=== PATIENT | female | born 1965 | race Caucasian/White ===

== ENCOUNTER → 2017-10-03 | Outpatient (CLI) | payer OTHER ==
[~2017-10-03] MED LIST: ALBU90OI61 INH; Amox Tr-K Clv1 EAC2 PO; BENTYL10 MG; CEPH500 PO; CETI5 PO; CYCL10 PO; Cinnamon500 MG PO; Coumadin5 MG; Cymbalta60 MG PO; DOCU100 PO; DOXE25 PO; DULO60; DULO60 PO; Doc-Q-Lace100 MG PO; ENOX100I SC; FIBER SELECT G1 EACH PO; FLUT.05NI; FLUT110OIA; FLUT110OIA INH; FURO20 PO; FURO40 PO; GABA300 PO; GLUC500 PO; GLUCOSAMINE &1 EACH PO; METCAR500 PO; Micro-K10 MEQ PO; NATURAL SUPPLEMENTS; NITR.4SL; NITR.6SL SL; Nitrostat0.4 MG SL; OMEP20ER PO; OXYC10TA19; PANT40; PANT40 PO; PRAM.125 PO; PROC10 PO; PROC5 PO; Percocet 5-3251 EACH PO; ROPI1; ROPI1 PO; ROSU10TA PO; Robaxin500 MG PO; SUCR1 PO; TOPI100 PO; TOPI25 PO; VALA500; VALA500 PO; Ventolin5 MG/1 ML; WARF10 PO; WARF5; WARF5 PO; WARF7.5 PO; Zofran Odt4 MG SL
== END | disposition home or self-care (01) ==
LOC: LAB EV 12:37
DX: J02.9 Acute pharyngitis, unspecified (principal)
CPT/HCPCS: 87070

== ENCOUNTER → 2017-11-06 | Outpatient (CLI) | payer OTHER ==
[2017-11-06 18:39] LABS: Bilirubin, Urine Neg (Neg); Blood, Urine 2+ (Neg); Glucose Qualitative, Urine Neg (Neg); Ketones, Urine Neg (Neg); Leukocyte Esterase, Urine 1+ (Neg); Nitrite, Urine Neg (Neg); Protein, Urine Neg (Neg); Urobilinogen, Urine NORM (Normal)
[2017-11-06 19:04] LABS: Appearance, Urine Clear (Clear); Color, Urine Yellow (P-Yellow)
[2017-11-06 19:06] LABS: Bacteria Few /hpf; Squamous Epithelial Cells Few /hpf (Few)
== END ==
LOC: LAB SHORT 18:14
PROVIDERS: Registered Nurse
DX: R82.90 Unspecified abnormal findings in urine (principal); R35.0 Frequency of micturition
CPT/HCPCS: 81001; 87086

== ENCOUNTER → 2017-11-14 | Outpatient (CLI) | payer OTHER ==
[~2017-11-14] MED LIST changes: -Micro-K10 MEQ PO; -PRAM.125 PO; -ROSU10TA PO
[2017-11-14 16:32] LABS: BASOPHILS ABSOLUTE AUTO 0.04 K/mm3 (0.00-0.23); BASOPHILS PERCENT AUTO 1 % (0-2); EOSINOPHILS ABSOLUTE AUTO 0.08 K/mm3 (0.00-0.68); EOSINOPHILS PERCENT AUTO 1 % (0-6); Hematocrit 43.9 % (33.0-51.0); Hemoglobin 14.2 g/dL (11.5-16.0); IMMATURE GRAN ABSOLUTE AUTO 0.01 K/mm3 (0.00-0.10); IMMATURE GRAN PERCENT AUTO 0 % (0-1); LYMPHOCYTES ABSOLUTE AUTO 1.69 K/mm3 (0.84-5.20); LYMPHOCYTES PERCENT AUTO 27 % (21-46); MONOCYTES ABSOLUTE AUTO 0.36 K/mm3 (0.16-1.47); MONOCYTES PERCENT AUTO 6 % (4-13); Mean Corpuscular HGB 29.6 pg (26.0-34.0); Mean Corpuscular HGB Conc 32.3 g/dL (31.5-36.5); Mean Corpuscular Volume 92 fL (80-100); Mean Platelet Volume 10.2 fL (9.1-12.4); NEUTROPHILS ABSOLUTE AUTO 4.02 K/mm3 (1.96-9.15); NEUTROPHILS PERCENT AUTO 65 % (41-73); Platelet Count 278 K/mm3 (150-400); RDW Coefficient Variation 14.5 % (11.7-14.2); RDW Standard Deviation 48.4 fL (35.1-46.3)
== END ==
LOC: LAB SHORT 16:28 → LAB EV 16:28
PROVIDERS: Physician Assistant
DX: R10.84 Generalized abdominal pain (principal)
CPT/HCPCS: 85025

== ENCOUNTER → 2017-12-04 | Outpatient (CLI) | payer OTHER ==
[~2017-12-04] MED LIST changes: +Micro-K10 MEQ PO; +PRAM.125 PO; +ROSU10TA PO
[2017-12-04 14:54] LABS: Candida species (DNA Probe) Negative (NEGATIVE); G. vaginalis (DNA Probe) Negative (NEGATIVE); T. vaginalis (DNA Probe) Negative (NEGATIVE)
[2017-12-04 16:21] LABS: Source, Urine Clean Catch
[2017-12-04 18:32] LABS: Appearance, Urine Clear (Clear); Bilirubin, Urine Neg (Neg); Blood, Urine Neg (Neg); Color, Urine Yellow (P-Yellow); Glucose Qualitative, Urine Neg (Neg); Ketones, Urine Neg (Neg); Leukocyte Esterase, Urine Neg (Neg); Nitrite, Urine Neg (Neg); Protein, Urine Neg (Neg); Specific Gravity, Urine 1.015 (1.003-1.022); Urobilinogen, Urine NORM (Normal)
== END ==
LOC: LAB 11:01
PROVIDERS: Obstetrics & Gynecology
DX: N76.0 Acute vaginitis (principal); R39.9 Unspecified symptoms and signs involving the genitourinary system
CPT/HCPCS: 81003; 87480; 87510; 87660

== ENCOUNTER → 2018-01-02 | Outpatient (CLI) | payer OTHER ==
[~2018-01-02] MED LIST changes: -Micro-K10 MEQ PO; -PRAM.125 PO; -ROSU10TA PO
[2018-01-02 11:45] LABS: Source, Urine Clean Catch
[2018-01-02 13:07] LABS: Appearance, Urine Hazy (Clear); Bilirubin, Urine Neg (Neg); Blood, Urine 2+ (Neg); Color, Urine Yellow (P-Yellow); Glucose Qualitative, Urine Neg (Neg); Ketones, Urine Neg (Neg); Leukocyte Esterase, Urine 1+ (Neg); Nitrite, Urine Neg (Neg); Protein, Urine Neg (Neg); Specific Gravity, Urine 1.015 (1.003-1.022); Urobilinogen, Urine NORM (Normal)
[2018-01-02 13:29] LABS: White Blood Cells, Urine TNTC /hpf (0-5)
[2018-01-02 13:30] LABS: Bacteria Many /hpf; Squamous Epithelial Cells Few /hpf (Few)
== END | disposition home or self-care (01) ==
LOC: LAB SHORT 11:44 → LAB 11:44
PROVIDERS: Obstetrics & Gynecology
DX: R35.0 Frequency of micturition (principal)
CPT/HCPCS: 81001; 87077; 87086; 87186

== ENCOUNTER 2019-06-17 10:16 | Day surgery (SDC) | payer OTHER ==
[~2019-06-17] VITALS: Wt 149.4 kg
[~2019-06-17 10:16] MED LIST changes: +Micro-K10 MEQ PO; +PRAM.125 PO; +ROSU10TA PO
[2019-06-17] MEDS ORDERED: CENTRUM CHEWAB1 EAC1 PO (10:42)
[2019-06-17] MEDS ORDERED: CYAN500 PO (10:42)
[2019-06-17] MEDS ORDERED: CALCITRATE200 MG PO (10:43)
== END 2019-06-17 17:15 | disposition home or self-care (01) ==
LOC: ATC 10:16
DX: D68.51 Activated protein C resistance (principal); Z86.718 Personal history of other venous thrombosis and embolism; Z79.01 Long term (current) use of anticoagulants; Z79.899 Other long term (current) drug therapy; Z88.5 Allergy status to narcotic agent; Z91.030 Bee allergy status
CPT/HCPCS: 96372; J1650

== ENCOUNTER 2019-06-18 00:13 | Day surgery (SDC) | payer OTHER ==
[~2019-06-18 00:13] MED LIST changes: +CALCITRATE200 MG PO; +CENTRUM CHEWAB1 EAC1 PO; +CYAN500 PO
== END 2019-06-18 08:03 | disposition home or self-care (01) ==
LOC: ATC 00:13
DX: D68.51 Activated protein C resistance (principal); E78.5 Hyperlipidemia, unspecified; F32.9 Major depressive disorder, single episode, unspecified; J45.909 Unspecified asthma, uncomplicated; Z79.899 Other long term (current) drug therapy; Z79.01 Long term (current) use of anticoagulants; Z91.038 Other insect allergy status; Z88.6 Allergy status to analgesic agent
CPT/HCPCS: 96372; J1650

== ENCOUNTER 2019-06-21 16:03 | Day surgery (SDC) | payer OTHER | END 2019-08-01 23:34 | disposition home or self-care (01) | LOC: ATC 16:03 | DX: D68.51 Activated protein C resistance (principal); J45.909 Unspecified asthma, uncomplicated; M17.12 Unilateral primary osteoarthritis, left knee; M16.11 Unilateral primary osteoarthritis, right hip; E78.5 Hyperlipidemia, unspecified; F32.9 Major depressive disorder, single episode, unspecified; K21.9 Gastro-esophageal reflux disease without esophagitis; E55.9 Vitamin D deficiency, unspecified; M41.9 Scoliosis, unspecified; E66.9 Obesity, unspecified; G47.33 Obstructive sleep apnea (adult) (pediatric); Z79.899 Other long term (current) drug therapy; Z88.5 Allergy status to narcotic agent; Z91.030 Bee allergy status | CPT/HCPCS: 96372; J1650 ==

== ENCOUNTER 2019-06-22 07:39 | Day surgery (SDC) | payer OTHER | END 2019-06-22 16:41 | disposition home or self-care (01) | LOC: ATC 07:39 | DX: D68.51 Activated protein C resistance (principal); J45.909 Unspecified asthma, uncomplicated; E78.5 Hyperlipidemia, unspecified; F32.9 Major depressive disorder, single episode, unspecified; G47.33 Obstructive sleep apnea (adult) (pediatric); E66.9 Obesity, unspecified; Z79.899 Other long term (current) drug therapy; Z79.01 Long term (current) use of anticoagulants; Z79.51 Long term (current) use of inhaled steroids; Z88.6 Allergy status to analgesic agent; Z91.030 Bee allergy status | CPT/HCPCS: 36416; 85610; 96372; J1650 ==

== ENCOUNTER 2019-06-23 00:18 | Day surgery (SDC) | payer OTHER ==
--- NOTE | 2019-06-23 08:29 | NUR ---
INR 2.3, NO LOVENOX GIVEN PER ORDERS.
== END 2019-06-23 08:29 | disposition home or self-care (01) ==
LOC: ATC 00:18
DX: D68.51 Activated protein C resistance (principal); E78.5 Hyperlipidemia, unspecified; J45.909 Unspecified asthma, uncomplicated; F32.9 Major depressive disorder, single episode, unspecified; G47.33 Obstructive sleep apnea (adult) (pediatric); E66.9 Obesity, unspecified; Z79.01 Long term (current) use of anticoagulants; Z79.51 Long term (current) use of inhaled steroids; Z79.899 Other long term (current) drug therapy; Z91.030 Bee allergy status
CPT/HCPCS: 36416; 85610; 99211; J1650

== ENCOUNTER → 2019-08-06 | Outpatient (CLI) | payer OTHER ==
[2019-08-06 17:03] LABS: Source, Urine Clean Catch
[2019-08-06 18:16] LABS: Bilirubin, Urine Neg (Neg); Blood, Urine 4+ (Neg); Glucose Qualitative, Urine Neg (Neg); Ketones, Urine 1+ (Neg); Leukocyte Esterase, Urine 1+ (Neg); Nitrite, Urine Neg (Neg); Protein, Urine 1+ (Neg); Specific Gravity, Urine 1.015 (1.003-1.022); Urobilinogen, Urine NORM (Normal); pH, Urine 6.5 (5.0-8.0)
[2019-08-06 18:32] LABS: Appearance, Urine Clear (Clear); Color, Urine Yellow (P-Yellow)
[2019-08-06 18:33] LABS: Red Blood Cells, Urine 25-50 /hpf (0-2); White Blood Cells, Urine 0-2 /hpf (0-5)
[2019-08-06 18:34] LABS: Bacteria Mod /hpf; Squamous Epithelial Cells Few /hpf (Few)
== END ==
LOC: LAB SHORT 17:01 → LAB 17:01
PROVIDERS: Obstetrics & Gynecology
DX: R30.9 Painful micturition, unspecified (principal)
CPT/HCPCS: 81001; 87086

== ENCOUNTER 2019-08-17 09:11 | Day surgery (SDC) | payer OTHER ==
--- NOTE | 2019-08-17 15:39 | NUR ---
INR RESULTS FAXED TO [facility]
[2019-08-24] MEDS ORDERED: OMEPRAZOLE20 MG PO (07:34)
[2019-10-17] MEDS ORDERED: DULO60 PO (10:22)
[2019-10-17] MEDS ORDERED: ALBU2.5V5 INH (10:23)
[2019-10-17] MEDS ORDERED: ALLER-FEX180 MG PO (10:24)
== END 2019-08-17 16:45 | disposition home or self-care (01) ==
LOC: ATC 09:11
DX: D68.51 Activated protein C resistance (principal); J44.9 Chronic obstructive pulmonary disease, unspecified; E78.5 Hyperlipidemia, unspecified; F41.9 Anxiety disorder, unspecified; E66.9 Obesity, unspecified; F32.9 Major depressive disorder, single episode, unspecified; G47.33 Obstructive sleep apnea (adult) (pediatric); K21.9 Gastro-esophageal reflux disease without esophagitis; H90.8 Mixed conductive and sensorineural hearing loss, unspecified; H53.10 Unspecified subjective visual disturbances; Z79.01 Long term (current) use of anticoagulants; Z79.899 Other long term (current) drug therapy; Z88.5 Allergy status to narcotic agent; Z91.030 Bee allergy status
CPT/HCPCS: 36416; 85610; 96372; J1650

== ENCOUNTER 2019-08-18 06:53 | Day surgery (SDC) | payer OTHER ==
[2019-08-24] MEDS ORDERED: OMEPRAZOLE20 MG PO (07:34)
[2019-10-17] MEDS ORDERED: DULO60 PO (10:22)
[2019-10-17] MEDS ORDERED: ALBU2.5V5 INH (10:23)
[2019-10-17] MEDS ORDERED: ALLER-FEX180 MG PO (10:24)
== END 2019-08-18 16:04 | disposition home or self-care (01) ==
LOC: ATC 06:53
DX: D68.2 Hereditary deficiency of other clotting factors (principal); I10 Essential (primary) hypertension; J45.909 Unspecified asthma, uncomplicated; E78.5 Hyperlipidemia, unspecified; E66.9 Obesity, unspecified; G62.9 Polyneuropathy, unspecified; G25.81 Restless legs syndrome; F32.9 Major depressive disorder, single episode, unspecified; G47.33 Obstructive sleep apnea (adult) (pediatric); K21.9 Gastro-esophageal reflux disease without esophagitis; M41.84 Other forms of scoliosis, thoracic region; F70 Mild intellectual disabilities; E55.9 Vitamin D deficiency, unspecified; K58.1 Irritable bowel syndrome with constipation; Z79.01 Long term (current) use of anticoagulants; Z79.51 Long term (current) use of inhaled steroids; Z79.899 Other long term (current) drug therapy; Z88.5 Allergy status to narcotic agent; Z91.030 Bee allergy status; Z86.711 Personal history of pulmonary embolism; Z86.718 Personal history of other venous thrombosis and embolism; Z90.710 Acquired absence of both cervix and uterus
CPT/HCPCS: 96372; J1650

== ENCOUNTER 2019-08-19 00:07 | Day surgery (SDC) | payer OTHER ==
[2019-08-24] MEDS ORDERED: OMEPRAZOLE20 MG PO (07:34)
[2019-10-17] MEDS ORDERED: DULO60 PO (10:22)
[2019-10-17] MEDS ORDERED: ALBU2.5V5 INH (10:23)
[2019-10-17] MEDS ORDERED: ALLER-FEX180 MG PO (10:24)
== END 2019-08-19 07:55 | disposition home or self-care (01) ==
LOC: ATC 00:07
DX: D68.2 Hereditary deficiency of other clotting factors (principal); I27.20 Pulmonary hypertension, unspecified; J45.909 Unspecified asthma, uncomplicated; E78.5 Hyperlipidemia, unspecified; E66.9 Obesity, unspecified; G62.9 Polyneuropathy, unspecified; G25.81 Restless legs syndrome; K58.1 Irritable bowel syndrome with constipation; F32.9 Major depressive disorder, single episode, unspecified; K21.9 Gastro-esophageal reflux disease without esophagitis; G47.33 Obstructive sleep apnea (adult) (pediatric); F70 Mild intellectual disabilities; G89.29 Other chronic pain; M41.84 Other forms of scoliosis, thoracic region; Z90.710 Acquired absence of both cervix and uterus; Z79.01 Long term (current) use of anticoagulants; Z79.899 Other long term (current) drug therapy; Z79.51 Long term (current) use of inhaled steroids; Z88.5 Allergy status to narcotic agent; Z91.030 Bee allergy status
CPT/HCPCS: 36416; 85610; 96372; J1650

== ENCOUNTER 2019-08-20 13:23 | Day surgery (SDC) | payer OTHER ==
[~2019-08-20] VITALS: Ht 175.3 cm; Wt 136.0 kg
--- NOTE | 2019-08-20 16:08 | NUR ---
08/20/19 1608 Juju Cadena PT DELAYED D/T DR PRIETO'S CONCRETE PUDDLER EMERGENT CASES NEXT DOOR. DR. ARCHIBALD CAN DO PROCEDURE. DR PRIETO & PT BOTH OK WITH THIS. DR ARCHIBALD NEXT DOOR TO DO 1600 CASE, THEN BACK TO COMPLETE THIS UPPER. PT AND FAMILY MEMBER NOTIFIED. BOTH STATE AN UNDERSTANDING AND ARE HANDLING THE DELAY GOOD. CALL LIGHT WITHIN REACH. VSS. WILL CONTINUE TO MONITOR.
[2019-08-21] MEDS ORDERED: WARF10 PO ×2 (08:09→08:10)
[2019-08-24] MEDS ORDERED: OMEPRAZOLE20 MG PO (07:34)
[2019-10-17] MEDS ORDERED: DULO60 PO (10:22)
[2019-10-17] MEDS ORDERED: ALBU2.5V5 INH (10:23)
[2019-10-17] MEDS ORDERED: ALLER-FEX180 MG PO (10:24)
== END 2019-08-20 17:31 | disposition home or self-care (01) ==
LOC: ORSCSDS 13:23
PROVIDERS: Internal Medicine Gastroenterology
PROC: 0DB58ZX Excision of Esophagus, Via Natural or Artificial Opening Endoscopic, Diagnostic (ICD-10-PCS; principal; 2019-08-20 15:15)
DX: R13.10 Dysphagia, unspecified (principal); K21.9 Gastro-esophageal reflux disease without esophagitis; K22.2 Esophageal obstruction; K44.9 Diaphragmatic hernia without obstruction or gangrene; K22.10 Ulcer of esophagus without bleeding; G47.33 Obstructive sleep apnea (adult) (pediatric); J45.909 Unspecified asthma, uncomplicated; E78.5 Hyperlipidemia, unspecified; E66.01 Morbid (severe) obesity due to excess calories; Z68.41 Body mass index [BMI] 40.0-44.9, adult; Z79.899 Other long term (current) drug therapy
CPT/HCPCS: 88305; J2704; J7120

== ENCOUNTER 2019-08-21 00:17 | Day surgery (SDC) | payer OTHER ==
[2019-08-21] MEDS ORDERED: WARF10 PO ×2 (08:09→08:10)
[2019-08-24] MEDS ORDERED: OMEPRAZOLE20 MG PO (07:34)
[2019-10-17] MEDS ORDERED: DULO60 PO (10:22)
[2019-10-17] MEDS ORDERED: ALBU2.5V5 INH (10:23)
[2019-10-17] MEDS ORDERED: ALLER-FEX180 MG PO (10:24)
== END 2019-08-21 08:10 | disposition home or self-care (01) ==
LOC: ATC 00:17
DX: D68.2 Hereditary deficiency of other clotting factors (principal); J45.909 Unspecified asthma, uncomplicated; E78.5 Hyperlipidemia, unspecified; K21.9 Gastro-esophageal reflux disease without esophagitis; E66.9 Obesity, unspecified; M17.12 Unilateral primary osteoarthritis, left knee; M16.11 Unilateral primary osteoarthritis, right hip; G62.9 Polyneuropathy, unspecified; G25.81 Restless legs syndrome; F32.9 Major depressive disorder, single episode, unspecified; G47.33 Obstructive sleep apnea (adult) (pediatric); M41.9 Scoliosis, unspecified; F70 Mild intellectual disabilities; I27.20 Pulmonary hypertension, unspecified; G89.29 Other chronic pain; Z79.01 Long term (current) use of anticoagulants; Z79.51 Long term (current) use of inhaled steroids; Z79.899 Other long term (current) drug therapy; Z90.710 Acquired absence of both cervix and uterus; Z88.5 Allergy status to narcotic agent; Z91.030 Bee allergy status
CPT/HCPCS: 96372; J1650

== ENCOUNTER 2019-08-22 00:35 | Day surgery (SDC) | payer OTHER ==
--- NOTE | 2019-08-22 18:25 | NUR ---
PT REPORTS THAT SHE WILL NOT BE IN ON 08/24 AND 08/25 "I'LL BE HOUSE SITTING AND I WONT HAVE A RIDE" PT VERBALIZES THE IMPORTANCE OF KEEPING HER APPOINTMENT AND REPORTS "NO" WHEN ASKED IF DR IS AWARE SHE WILL BE MISSING THOSE 2 DAYS. "ANALI BEEN THROUGH THAT TAKING A CAB AND HAVING THEM DROP ME OFF, AND THEN HAVING TO WAIT A LONG TIME TO HAVE THEM PICK ME UP AND TAKE ME HOME. IM NOT GOING THROUGH THAT AGAIN!"
[2019-08-24] MEDS ORDERED: OMEPRAZOLE20 MG PO (07:34)
[2019-10-17] MEDS ORDERED: DULO60 PO (10:22)
[2019-10-17] MEDS ORDERED: ALBU2.5V5 INH (10:23)
[2019-10-17] MEDS ORDERED: ALLER-FEX180 MG PO (10:24)
== END 2019-08-22 16:40 | disposition home or self-care (01) ==
LOC: ATC 00:35
DX: D68.2 Hereditary deficiency of other clotting factors (principal); J45.909 Unspecified asthma, uncomplicated; E78.5 Hyperlipidemia, unspecified; K21.9 Gastro-esophageal reflux disease without esophagitis; E66.9 Obesity, unspecified; G62.9 Polyneuropathy, unspecified; G25.81 Restless legs syndrome; I27.20 Pulmonary hypertension, unspecified; G47.33 Obstructive sleep apnea (adult) (pediatric); M41.84 Other forms of scoliosis, thoracic region; F70 Mild intellectual disabilities; F32.9 Major depressive disorder, single episode, unspecified; M19.90 Unspecified osteoarthritis, unspecified site; Z79.01 Long term (current) use of anticoagulants; Z79.51 Long term (current) use of inhaled steroids; Z79.899 Other long term (current) drug therapy; Z88.5 Allergy status to narcotic agent; Z91.030 Bee allergy status; Z86.711 Personal history of pulmonary embolism; Z86.718 Personal history of other venous thrombosis and embolism; Z91.038 Other insect allergy status
CPT/HCPCS: 36416; 85610; 96372; J1650

== ENCOUNTER 2019-08-23 00:20 | Day surgery (SDC) | payer OTHER ==
[2019-08-24] MEDS ORDERED: OMEPRAZOLE20 MG PO (07:34)
[2019-10-17] MEDS ORDERED: DULO60 PO (10:22)
[2019-10-17] MEDS ORDERED: ALBU2.5V5 INH (10:23)
[2019-10-17] MEDS ORDERED: ALLER-FEX180 MG PO (10:24)
== END 2019-08-23 16:33 | disposition home or self-care (01) ==
LOC: ATC 00:20
DX: D68.2 Hereditary deficiency of other clotting factors (principal); E78.5 Hyperlipidemia, unspecified; F32.9 Major depressive disorder, single episode, unspecified; J45.909 Unspecified asthma, uncomplicated; E66.9 Obesity, unspecified; G47.33 Obstructive sleep apnea (adult) (pediatric); H90.8 Mixed conductive and sensorineural hearing loss, unspecified; H53.10 Unspecified subjective visual disturbances; K21.9 Gastro-esophageal reflux disease without esophagitis; Z79.01 Long term (current) use of anticoagulants; Z79.899 Other long term (current) drug therapy; Z88.5 Allergy status to narcotic agent; Z91.030 Bee allergy status; Z79.02 Long term (current) use of antithrombotics/antiplatelets
CPT/HCPCS: 36416; 85610; 96372; J1650

== ENCOUNTER 2019-08-25 00:36 | Day surgery (SDC) | payer OTHER ==
[~2019-08-25 00:36] MED LIST changes: +OMEPRAZOLE20 MG PO
== END 2019-08-25 23:01 | disposition home or self-care (01) ==
LOC: ATC 00:36
DX: D68.2 Hereditary deficiency of other clotting factors (principal); J45.909 Unspecified asthma, uncomplicated; E78.5 Hyperlipidemia, unspecified; K21.9 Gastro-esophageal reflux disease without esophagitis; E66.9 Obesity, unspecified; G62.9 Polyneuropathy, unspecified; G25.81 Restless legs syndrome; F32.9 Major depressive disorder, single episode, unspecified; G47.33 Obstructive sleep apnea (adult) (pediatric); F70 Mild intellectual disabilities; I27.20 Pulmonary hypertension, unspecified; M17.12 Unilateral primary osteoarthritis, left knee; M16.11 Unilateral primary osteoarthritis, right hip; Z88.5 Allergy status to narcotic agent; Z91.030 Bee allergy status; Z79.01 Long term (current) use of anticoagulants; Z79.899 Other long term (current) drug therapy; Z86.711 Personal history of pulmonary embolism; Z86.718 Personal history of other venous thrombosis and embolism

== ENCOUNTER → 2019-09-03 | Outpatient (CLI) | payer OTHER ==
[~2019-09-03] MED LIST changes: +ALBU2.5V5 INH; +ALLER-FEX180 MG PO; +ENOX120I SC; +LOVENOX150 MG/1 M SC; +WARF1 PO
[2019-09-03 16:36] LABS: Bilirubin, Urine Neg (Neg); Blood, Urine 2+ (Neg); Glucose Qualitative, Urine Neg (Neg); Ketones, Urine Neg (Neg); Leukocyte Esterase, Urine Neg (Neg); Nitrite, Urine Neg (Neg); Protein, Urine Neg (Neg); Specific Gravity, Urine 1.005 (1.003-1.022); Urobilinogen, Urine NORM (Normal)
[2019-09-03 16:45] LABS: Appearance, Urine Clear (Clear); Color, Urine Yellow (P-Yellow)
[2019-09-03 16:46] LABS: Bacteria Many /hpf; Squamous Epithelial Cells Mod /hpf (Few); White Blood Cells, Urine 0-2 /hpf (0-5)
== END | disposition home or self-care (01) ==
LOC: LAB SHORT 15:21 → LAB 15:21
PROVIDERS: Obstetrics & Gynecology
DX: R31.9 Hematuria, unspecified (principal)
CPT/HCPCS: 81001; 87086

== ENCOUNTER 2019-10-20 07:06 | Day surgery (SDC) | payer OTHER ==
[~2019-10-20 07:06] MED LIST changes: -ENOX120I SC; -LOVENOX150 MG/1 M SC; -WARF1 PO
[2019-10-20] MEDS ORDERED: ENOX120I SC (16:22)
== END 2019-10-20 16:15 | disposition home or self-care (01) ==
LOC: ATC 07:06
DX: D68.2 Hereditary deficiency of other clotting factors (principal); D68.51 Activated protein C resistance; E55.9 Vitamin D deficiency, unspecified; G56.12 Other lesions of median nerve, left upper limb; F32.9 Major depressive disorder, single episode, unspecified; J45.909 Unspecified asthma, uncomplicated; E66.9 Obesity, unspecified; E78.5 Hyperlipidemia, unspecified; G25.81 Restless legs syndrome; M17.12 Unilateral primary osteoarthritis, left knee; M16.11 Unilateral primary osteoarthritis, right hip; I27.20 Pulmonary hypertension, unspecified; F70 Mild intellectual disabilities; G47.33 Obstructive sleep apnea (adult) (pediatric); K21.9 Gastro-esophageal reflux disease without esophagitis; M41.9 Scoliosis, unspecified; K58.1 Irritable bowel syndrome with constipation; Z86.711 Personal history of pulmonary embolism; Z79.01 Long term (current) use of anticoagulants; Z79.51 Long term (current) use of inhaled steroids; Z79.899 Other long term (current) drug therapy; Z88.5 Allergy status to narcotic agent; Z91.030 Bee allergy status; Z86.718 Personal history of other venous thrombosis and embolism; Z68.41 Body mass index [BMI] 40.0-44.9, adult
CPT/HCPCS: 96372; J1650

== ENCOUNTER 2019-10-21 00:16 | Day surgery (SDC) | payer OTHER ==
[~2019-10-21 00:16] MED LIST changes: +ENOX120I SC
--- NOTE | 2019-10-21 08:14 | NUR ---
PT SEEMS CONFUSED REGARDING DIRECTIONS FOR COLONOSCOPY TOMORROW. I CALLED DR FRANKLIN'S OFFICE AND SPOKE WITH VIPIN, PT TO BE ON CLEAR LIQUIDS TODAY AND FOLLOW CLENSE DIRECTIONS THAT HAVE BEEN GIVEN TO PT. OK FOR PT TO TAKE ATENOLOL. PT VERBALIZED UNDERSTANDING OF INFORMTION I SHARED WITH HIM AFTER TALKING TO VIPIN TODAY. PT TO CALL OR GO TO DR FRANKLIN'S OFFICE TODAY IF HE HAS QUESTIONS. PT HAS NOT EATEN TODAY AND KNOWS HE IS ON CLEAR LIQUIDS TODAY.
== END 2019-10-21 17:01 | disposition home or self-care (01) ==
LOC: ATC 00:16 → LAB 00:16 → ATC 07:30
DX: D68.2 Hereditary deficiency of other clotting factors (principal); E78.5 Hyperlipidemia, unspecified; F32.9 Major depressive disorder, single episode, unspecified; K21.9 Gastro-esophageal reflux disease without esophagitis; E66.9 Obesity, unspecified; J45.909 Unspecified asthma, uncomplicated; H91.90 Unspecified hearing loss, unspecified ear; G47.33 Obstructive sleep apnea (adult) (pediatric); Z86.718 Personal history of other venous thrombosis and embolism; Z86.711 Personal history of pulmonary embolism; Z79.01 Long term (current) use of anticoagulants; Z79.02 Long term (current) use of antithrombotics/antiplatelets; Z79.899 Other long term (current) drug therapy; Z88.5 Allergy status to narcotic agent; Z91.030 Bee allergy status
CPT/HCPCS: 96372; J1650

== ENCOUNTER 2019-10-22 00:07 | Day surgery (SDC) | payer OTHER | END 2019-10-22 16:44 | disposition home or self-care (01) | LOC: ATC 00:07 | DX: D68.2 Hereditary deficiency of other clotting factors (principal); D68.51 Activated protein C resistance; E78.5 Hyperlipidemia, unspecified; J45.909 Unspecified asthma, uncomplicated; G62.9 Polyneuropathy, unspecified; G25.81 Restless legs syndrome; K58.1 Irritable bowel syndrome with constipation; G47.33 Obstructive sleep apnea (adult) (pediatric); F32.9 Major depressive disorder, single episode, unspecified; K21.9 Gastro-esophageal reflux disease without esophagitis; F70 Mild intellectual disabilities; E55.9 Vitamin D deficiency, unspecified; M41.84 Other forms of scoliosis, thoracic region; G89.29 Other chronic pain; M17.9 Osteoarthritis of knee, unspecified; M16.11 Unilateral primary osteoarthritis, right hip; I27.20 Pulmonary hypertension, unspecified; H90.8 Mixed conductive and sensorineural hearing loss, unspecified; H53.10 Unspecified subjective visual disturbances; E66.9 Obesity, unspecified; Z79.01 Long term (current) use of anticoagulants; Z79.51 Long term (current) use of inhaled steroids; Z79.899 Other long term (current) drug therapy; Z86.718 Personal history of other venous thrombosis and embolism; Z86.711 Personal history of pulmonary embolism; Z88.5 Allergy status to narcotic agent; Z91.030 Bee allergy status | CPT/HCPCS: 96372; J1650 ==

== ENCOUNTER 2019-10-23 00:10 | Day surgery (SDC) | payer OTHER ==
[2019-10-24] MEDS ORDERED: WARF1 PO (10:47)
[2019-10-24] MEDS ORDERED: WARF5 PO (10:47)
[2019-10-24] MEDS ORDERED: WARF10 PO ×2 (10:48→17:23)
[2019-10-24] MEDS ORDERED: LOVENOX150 MG/1 M SC (17:25)
== END 2019-10-23 07:55 | disposition home or self-care (01) ==
LOC: ATC 00:10
DX: D68.2 Hereditary deficiency of other clotting factors (principal); D68.51 Activated protein C resistance; E78.5 Hyperlipidemia, unspecified; J45.909 Unspecified asthma, uncomplicated; E66.9 Obesity, unspecified; G62.9 Polyneuropathy, unspecified; G25.81 Restless legs syndrome; G56.21 Lesion of ulnar nerve, right upper limb; I27.20 Pulmonary hypertension, unspecified; G56.12 Other lesions of median nerve, left upper limb; K21.9 Gastro-esophageal reflux disease without esophagitis; G47.33 Obstructive sleep apnea (adult) (pediatric); F70 Mild intellectual disabilities; H90.8 Mixed conductive and sensorineural hearing loss, unspecified; E55.9 Vitamin D deficiency, unspecified; H53.10 Unspecified subjective visual disturbances; K58.1 Irritable bowel syndrome with constipation; F32.9 Major depressive disorder, single episode, unspecified; M17.9 Osteoarthritis of knee, unspecified; M16.11 Unilateral primary osteoarthritis, right hip; M41.84 Other forms of scoliosis, thoracic region; Z86.711 Personal history of pulmonary embolism; Z86.718 Personal history of other venous thrombosis and embolism; Z79.01 Long term (current) use of anticoagulants; Z79.899 Other long term (current) drug therapy; Z79.52 Long term (current) use of systemic steroids; Z88.5 Allergy status to narcotic agent; Z91.030 Bee allergy status
CPT/HCPCS: 96372; J1650

== ENCOUNTER 2019-10-24 00:10 | Day surgery (SDC) | payer OTHER ==
[2019-10-24] MEDS ORDERED: WARF1 PO (10:47)
[2019-10-24] MEDS ORDERED: WARF5 PO (10:47)
[2019-10-24] MEDS ORDERED: WARF10 PO ×2 (10:48→17:23)
[2019-10-24] MEDS ORDERED: LOVENOX150 MG/1 M SC (17:25)
== END 2019-10-24 23:05 | disposition home or self-care (01) ==
LOC: ATC 00:10
DX: D68.2 Hereditary deficiency of other clotting factors (principal); D68.51 Activated protein C resistance; E78.5 Hyperlipidemia, unspecified; J45.909 Unspecified asthma, uncomplicated; G47.33 Obstructive sleep apnea (adult) (pediatric); K21.9 Gastro-esophageal reflux disease without esophagitis; M41.84 Other forms of scoliosis, thoracic region; H90.8 Mixed conductive and sensorineural hearing loss, unspecified; H53.10 Unspecified subjective visual disturbances; F70 Mild intellectual disabilities; F32.9 Major depressive disorder, single episode, unspecified; E66.9 Obesity, unspecified; G56.21 Lesion of ulnar nerve, right upper limb; M17.9 Osteoarthritis of knee, unspecified; M16.11 Unilateral primary osteoarthritis, right hip; G62.9 Polyneuropathy, unspecified; G25.81 Restless legs syndrome; I25.10 Atherosclerotic heart disease of native coronary artery without angina pectoris; G56.12 Other lesions of median nerve, left upper limb; K58.1 Irritable bowel syndrome with constipation; M53.80 Other specified dorsopathies, site unspecified; E55.9 Vitamin D deficiency, unspecified; G89.29 Other chronic pain; Z86.718 Personal history of other venous thrombosis and embolism; Z86.711 Personal history of pulmonary embolism; Z79.01 Long term (current) use of anticoagulants; Z79.899 Other long term (current) drug therapy; Z79.51 Long term (current) use of inhaled steroids; Z88.5 Allergy status to narcotic agent; Z91.030 Bee allergy status; Z68.41 Body mass index [BMI] 40.0-44.9, adult
CPT/HCPCS: 96372; J1650

== ENCOUNTER 2019-10-24 10:25 | Day surgery (SDC) | payer OTHER ==
[~2019-10-24] VITALS: Ht 175.3 cm; Wt 132.7 kg
[2019-10-24] MEDS ORDERED: WARF1 PO (10:47)
[2019-10-24] MEDS ORDERED: WARF5 PO (10:47)
[2019-10-24] MEDS ORDERED: WARF10 PO ×2 (10:48→17:23)
--- NOTE | 2019-10-24 11:05 | NUR ---
10/24/19 1105 Nola Betancourt 1ST I.V. ATTEMPT IN RIGHT HAND BY CATE 2ND I.V. ATTEMPT IN RIGHT HAND BY CATE 3RD I.V. ATTEMPT IN LEFT WRIST BY WENDI
[2019-10-24] MEDS ORDERED: LOVENOX150 MG/1 M SC (17:25)
== END 2019-10-24 12:28 | disposition home or self-care (01) ==
LOC: ORSCSDS 10:25
PROVIDERS: Internal Medicine Gastroenterology
PROC: 0DJ08ZZ Inspection of Upper Intestinal Tract, Via Natural or Artificial Opening Endoscopic (ICD-10-PCS; principal; 2019-10-24 12:15)
DX: Z87.11 Personal history of peptic ulcer disease (principal); K21.9 Gastro-esophageal reflux disease without esophagitis; K44.9 Diaphragmatic hernia without obstruction or gangrene; K22.0 Achalasia of cardia; Z79.899 Other long term (current) drug therapy; G47.33 Obstructive sleep apnea (adult) (pediatric); I10 Essential (primary) hypertension; J45.909 Unspecified asthma, uncomplicated; E66.01 Morbid (severe) obesity due to excess calories; Z68.41 Body mass index [BMI] 40.0-44.9, adult; D68.51 Activated protein C resistance
CPT/HCPCS: J2704; J7120

== ENCOUNTER → 2019-11-08 | Outpatient (CLI) | payer OTHER ==
[~2019-11-08] MED LIST changes: +LOVENOX150 MG/1 M SC; +WARF1 PO
[2019-11-08 10:16] LABS: Source, Urine Clean Catch
[2019-11-08 13:42] LABS: Bilirubin, Urine Neg (Neg); Blood, Urine 2+ (Neg); Glucose Qualitative, Urine Neg (Neg); Ketones, Urine Neg (Neg); Leukocyte Esterase, Urine Neg (Neg); Nitrite, Urine Neg (Neg); Protein, Urine Neg (Neg); Urobilinogen, Urine NORM (Normal)
[2019-11-08 14:25] LABS: Appearance, Urine Hazy (Clear); Color, Urine Yellow (P-Yellow)
[2019-11-08 14:26] LABS: White Blood Cells, Urine 0-2 /hpf (0-5)
[2019-11-08 14:27] LABS: Bacteria Many /hpf; Squamous Epithelial Cells Mod /hpf (Few)
== END ==
LOC: LAB 09:00 → LAB SHORT 09:00
PROVIDERS: Obstetrics & Gynecology
DX: R82.90 Unspecified abnormal findings in urine (principal)
CPT/HCPCS: 81001; 87086

== ENCOUNTER → 2019-11-08 | Outpatient (CLI) | payer OTHER ==
[2019-11-09 10:12] LABS: Candida species (DNA Probe) Negative (NEGATIVE); G. vaginalis (DNA Probe) Negative (NEGATIVE); T. vaginalis (DNA Probe) Negative (NEGATIVE)
== END | disposition home or self-care (01) ==
LOC: LAB 09:00 → LAB SHORT 09:00
PROVIDERS: Obstetrics & Gynecology
DX: N76.0 Acute vaginitis (principal)
CPT/HCPCS: 87480; 87510; 87660

== ENCOUNTER 2020-02-28 00:53 | Day surgery (SDC) | payer OTHER ==
[2020-02-28] MEDS ORDERED: Femring1 EAC1 VAG (17:16)
[2020-02-28] MEDS ORDERED: Metronidazole T45 GM (17:17)
[2020-02-28] MEDS ORDERED: FURO20 PO (17:47)
[2020-02-28] MEDS ORDERED: AFLURIA QU IM (17:48)
== END 2020-02-28 16:10 | disposition home or self-care (01) ==
LOC: ATC 00:53
DX: D68.2 Hereditary deficiency of other clotting factors (principal); Z79.01 Long term (current) use of anticoagulants; J45.909 Unspecified asthma, uncomplicated; Z79.899 Other long term (current) drug therapy; F32.9 Major depressive disorder, single episode, unspecified; Z79.02 Long term (current) use of antithrombotics/antiplatelets
CPT/HCPCS: 36416; 85610; 96372; J1650

== ENCOUNTER 2020-02-29 00:39 | Day surgery (SDC) | payer OTHER ==
[~2020-02-29 00:39] MED LIST changes: +AFLURIA QU IM; +Femring1 EAC1 VAG; +Metronidazole T45 GM
[2020-03-01] MEDS ORDERED: LOVENOX150 MG/1 M SC (07:18)
== END 2020-02-29 16:02 | disposition home or self-care (01) ==
LOC: ATC 00:39
DX: D68.2 Hereditary deficiency of other clotting factors (principal); Z79.01 Long term (current) use of anticoagulants; J45.909 Unspecified asthma, uncomplicated; F32.9 Major depressive disorder, single episode, unspecified; Z79.899 Other long term (current) drug therapy
CPT/HCPCS: 96372; J1650

== ENCOUNTER 2020-03-01 00:07 | Day surgery (SDC) | payer OTHER ==
[~2020-03-01] VITALS: Wt 129.0 kg
[2020-03-01] MEDS ORDERED: LOVENOX150 MG/1 M SC (07:18)
== END 2020-03-01 15:55 | disposition home or self-care (01) ==
LOC: ATC 00:07
DX: D68.2 Hereditary deficiency of other clotting factors (principal); Z79.01 Long term (current) use of anticoagulants; J45.909 Unspecified asthma, uncomplicated; F32.9 Major depressive disorder, single episode, unspecified; Z79.899 Other long term (current) drug therapy; Z88.5 Allergy status to narcotic agent; Z86.711 Personal history of pulmonary embolism; Z86.718 Personal history of other venous thrombosis and embolism
CPT/HCPCS: 96372; J1650

== ENCOUNTER 2020-03-03 10:27 | Day surgery (SDC) | payer OTHER ==
[~2020-03-03] VITALS: Ht 177.8 cm; Wt 129.0 kg
[2020-03-03] MEDS ORDERED: WARF7.5 PO (10:47)
[2020-03-03] MEDS ORDERED: WARF5 PO (10:47)
--- NOTE | 2020-03-03 11:16 | NUR ---
03/03/20 1116 Enedina Rai PT. VERBALIZES HAVING JUST A LITTLE BIT OF PAIN IN HER LEFT KNEE. PT. VERBALIZES SHE TAKES MEDS FOR THIS.
== END 2020-03-03 12:52 | disposition home or self-care (01) ==
LOC: ORSCSDS 10:27
PROVIDERS: Internal Medicine Gastroenterology
PROC: 0DJ08ZZ Inspection of Upper Intestinal Tract, Via Natural or Artificial Opening Endoscopic (ICD-10-PCS; principal; 2020-03-03 12:00)
DX: Z87.11 Personal history of peptic ulcer disease (principal); K44.9 Diaphragmatic hernia without obstruction or gangrene; K21.9 Gastro-esophageal reflux disease without esophagitis; J45.909 Unspecified asthma, uncomplicated; I82.409 Acute embolism and thrombosis of unspecified deep veins of unspecified lower extremity; F32.9 Major depressive disorder, single episode, unspecified; G47.33 Obstructive sleep apnea (adult) (pediatric); I10 Essential (primary) hypertension; Z68.41 Body mass index [BMI] 40.0-44.9, adult; E66.01 Morbid (severe) obesity due to excess calories; Z79.01 Long term (current) use of anticoagulants; Z79.899 Other long term (current) drug therapy
CPT/HCPCS: J2704; J7120

== ENCOUNTER 2020-03-04 00:07 | Day surgery (SDC) | payer OTHER | END 2020-03-04 16:21 | disposition home or self-care (01) | LOC: ATC 00:07 | DX: D68.2 Hereditary deficiency of other clotting factors (principal); Z79.01 Long term (current) use of anticoagulants; J45.909 Unspecified asthma, uncomplicated; F32.9 Major depressive disorder, single episode, unspecified; G47.33 Obstructive sleep apnea (adult) (pediatric); E66.01 Morbid (severe) obesity due to excess calories; Z86.711 Personal history of pulmonary embolism; Z86.718 Personal history of other venous thrombosis and embolism; Z79.899 Other long term (current) drug therapy; Z88.5 Allergy status to narcotic agent | CPT/HCPCS: 85610; 96372; J1650 ==

== ENCOUNTER 2020-03-05 00:05 | Day surgery (SDC) | payer OTHER | END 2020-03-05 15:59 | disposition home or self-care (01) | LOC: ATC 00:05 | DX: D68.2 Hereditary deficiency of other clotting factors (principal); J45.909 Unspecified asthma, uncomplicated; F32.9 Major depressive disorder, single episode, unspecified; Z79.899 Other long term (current) drug therapy; Z79.01 Long term (current) use of anticoagulants; Z88.5 Allergy status to narcotic agent; Z91.030 Bee allergy status | CPT/HCPCS: 36416; 85610; 96372; J1650 ==

== ENCOUNTER 2020-03-06 00:17 | Day surgery (SDC) | payer OTHER | END 2020-03-06 16:30 | disposition home or self-care (01) | LOC: ATC 00:17 | DX: D68.2 Hereditary deficiency of other clotting factors (principal); J45.909 Unspecified asthma, uncomplicated; F32.9 Major depressive disorder, single episode, unspecified; Z79.01 Long term (current) use of anticoagulants; Z79.899 Other long term (current) drug therapy; Z88.5 Allergy status to narcotic agent; Z91.030 Bee allergy status | CPT/HCPCS: 36416; 85610; 96372; J1650 ==

== ENCOUNTER 2020-03-07 00:06 | Day surgery (SDC) | payer OTHER ==
--- NOTE | 2020-03-07 07:57 | NUR ---
FINGERSTICK INR 2.8. NO MEDICATION GIVEN PER ORDERS. PT TO RESUME REGIMEN OF COUMADIN. VERBALIZES UNDERSTANDING.
== END 2020-03-07 07:53 | disposition home or self-care (01) ==
LOC: ATC 00:06
DX: D68.2 Hereditary deficiency of other clotting factors (principal); J45.909 Unspecified asthma, uncomplicated; F32.9 Major depressive disorder, single episode, unspecified; D63.8 Anemia in other chronic diseases classified elsewhere; E66.01 Morbid (severe) obesity due to excess calories; G47.33 Obstructive sleep apnea (adult) (pediatric); Z79.01 Long term (current) use of anticoagulants; Z79.899 Other long term (current) drug therapy; Z86.718 Personal history of other venous thrombosis and embolism; Z86.711 Personal history of pulmonary embolism; Z88.5 Allergy status to narcotic agent
CPT/HCPCS: 36416; 85610; 99211; J1650

== ENCOUNTER 2020-04-02 00:05 | Day surgery (SDC) | payer OTHER | END 2020-04-02 16:14 | disposition home or self-care (01) | LOC: ATC 00:05 | DX: D68.2 Hereditary deficiency of other clotting factors (principal); J45.909 Unspecified asthma, uncomplicated; F32.9 Major depressive disorder, single episode, unspecified; E66.01 Morbid (severe) obesity due to excess calories; Z68.42 Body mass index [BMI] 45.0-49.9, adult; G47.33 Obstructive sleep apnea (adult) (pediatric); Z79.01 Long term (current) use of anticoagulants; Z88.5 Allergy status to narcotic agent; Z79.899 Other long term (current) drug therapy; Z91.030 Bee allergy status; Z99.89 Dependence on other enabling machines and devices | CPT/HCPCS: 36416; 85610; 96372; J1650 ==

== ENCOUNTER 2020-04-03 01:46 | Day surgery (SDC) | payer OTHER | END 2020-04-03 16:41 | disposition home or self-care (01) | LOC: ATC 01:46 | DX: D68.2 Hereditary deficiency of other clotting factors (principal); J45.909 Unspecified asthma, uncomplicated; F32.9 Major depressive disorder, single episode, unspecified; Z79.899 Other long term (current) drug therapy; Z88.5 Allergy status to narcotic agent; Z79.01 Long term (current) use of anticoagulants; Z91.030 Bee allergy status | CPT/HCPCS: 36416; 85610; 96372; J1650 ==

== ENCOUNTER 2020-04-04 00:03 | Day surgery (SDC) | payer OTHER | END 2020-04-04 15:52 | disposition home or self-care (01) | LOC: ATC 00:03 | DX: D68.2 Hereditary deficiency of other clotting factors (principal); J45.909 Unspecified asthma, uncomplicated; F32.9 Major depressive disorder, single episode, unspecified; G47.33 Obstructive sleep apnea (adult) (pediatric); E66.01 Morbid (severe) obesity due to excess calories; Z68.42 Body mass index [BMI] 45.0-49.9, adult; Z79.01 Long term (current) use of anticoagulants; Z88.5 Allergy status to narcotic agent; Z91.030 Bee allergy status; Z79.899 Other long term (current) drug therapy | CPT/HCPCS: 36416; 85610; 96372; J1650 ==

== ENCOUNTER 2021-01-19 06:10 | Day surgery (SDC) | payer OTHER ==
[~2021-01-19] VITALS: Ht 175.3 cm; Wt 121.0 kg
[~2021-01-19 06:10] MED LIST changes: +ASCO500 PO; +Adipex-P37.5 MG PO; +BARIATRIC MVI PO; +DULCOEASE100 MG PO; +ELIQUIS2.5 MG PO; +FERROUS SULFAT325 M3 PO; +MELATONIN5 M1 PO; -Metronidazole T45 GM; +Metronidazole T45 GM TOP
--- NOTE | 2021-01-19 07:00 | NUR ---
History, Chart, Medications and Allergies reviewed before start of procedure. Lungs clear T/O to Auscultation. Patient confirms NPO status and agrees with scheduled surgery. Pre-Op teaching done. Pt verbalizes understanding. Patient reports completing Chlorhexadine shower X2 prior to admission to hospital.
--- NOTE | 2021-01-19 11:17 | NUR ---
ARRIVAL PATIENT ARRIVED TO UNIT AT APPROX 1030 FROM PACU. PT A/O X4. ANT WRAP TO LLE C/D/I. PT HAS FULL SENSATION AND MOVEMENT TO BLE, DENIES PAIN AT THIS TIME.
--- NOTE | 2021-01-19 17:29 | NUR ---
SHIFT SUMMARY PT POD#0 FOR LTKA. VITALS STABLE, PT ON RA WITH NO SOB. NO NAUSEA OR VOMITING REPORTED. PT STRAIGHT CATHED FOR URINARY RETENTION, SPONTANEOUS VOID FOLLOWING. PT BEING TREATED FOR PAIN PER EMAR. PT UP TO BATHROOM WITH WALKER AND GAITBELT, WEIGHT BEARING TOLERATED ON L LEG. PT PLEASANT AND APPROPRIATE. WILL REPORT TO ONCOMING SHIFT.
[2021-01-20 04:39] LABS: BASOPHILS ABSOLUTE AUTO 0.03 K/mm3 (0.00-0.23); BASOPHILS PERCENT AUTO 1 % (0-2); EOSINOPHILS PERCENT AUTO 2 % (0-6); Hematocrit 40.9 % (33.0-51.0); Hemoglobin 13.2 g/dL (11.5-16.0); IMMATURE GRAN ABSOLUTE AUTO 0.02 K/mm3 (0.00-0.10); IMMATURE GRAN PERCENT AUTO 0 % (0-1); LYMPHOCYTES ABSOLUTE AUTO 1.47 K/mm3 (0.84-5.20); LYMPHOCYTES PERCENT AUTO 22 % (21-46); MONOCYTES ABSOLUTE AUTO 0.64 K/mm3 (0.16-1.47); MONOCYTES PERCENT AUTO 10 % (4-13); Mean Corpuscular HGB 31.1 pg (26.0-34.0); Mean Corpuscular HGB Conc 32.3 g/dL (31.5-36.5); Mean Corpuscular Volume 96 fL (80-100); Mean Platelet Volume 10.2 fL (9.1-12.4); NEUTROPHILS ABSOLUTE AUTO 4.38 K/mm3 (1.96-9.15); NEUTROPHILS PERCENT AUTO 66 % (41-73); Platelet Count 222 K/mm3 (150-400); RDW Coefficient Variation 13.4 % (11.7-14.2); RDW Standard Deviation 47.9 fL (35.1-46.3); Red Blood Cell Count 4.25 M/mm3 (3.80-5.20); White Blood Cell Count 6.64 K/mm3 (4.00-11.30)
[2021-01-20 05:01] LABS: Anion Gap 3 mmol/L (6-16); Blood Urea Nitrogen 26 mg/dL (8-24); Bun/Creatinine Ratio 34.5 (12.0-20.0); CO2, Blood 27 mmol/L (21-32); Chloride, Blood 111 mmol/L (98-108); Creatinine, Blood 0.75 mg/dL (0.40-1.00); Glomerular Filtration Rate >60 (60-); Glucose, Blood 91 mg/dL (70-99); Potassium, Blood 4.4 mmol/L (3.5-5.5); Sodium, Blood 141 mmol/L (136-145)
--- NOTE | 2021-01-20 05:52 | NUR ---
SHIFT SUMMARY POD1 L TKA. VSS. PT REMAIN ON ROOM AIR. PAIN MANAGED WITH ULTRAM, TORADOL, TYLENOL. PAIN LEVEL AT 5/10. PT SLEPT GOOD LAST NIGHT. TOLERATING PO INTAKE. DENIES NAUSEA AND VOMITING. AMBULATING WITH SBA, FWW AND GB. TOLERATING IT WELL. VOIDING ADEQUATELY, DENIES DIFFICULTY/ISSUE. L KNEE WITH AQUACEL AND ANT WRAP, CDI. POLAR PACK AND SCD'S PLACED. PT DENIES N/T. PT AMBULATE IN THE HALLWAY TWICE LAST NIGHT. CALL LIGHT WITHIN REACH. PT UP IN CHAIR THIS MORNING. WILL PROVIDE REPORT TO ONCOMING NURSE.
[2021-01-20] MEDS ORDERED: TRAM50 PO (08:23)
--- NOTE | 2021-01-20 11:36 | NUR ---
DISCHARGE PT AND HER ENVIRONMENTAL CONSULTANT PROVIDED WITH WRITTEN AND VERBAL DISCHARGE ORDERS; THEY REPORTED UNDERSTANDING. DRESSINGS, CHANDLER HOSE AND PAIN MEDICATION PRESCRIPTION WERE PROVIDED PRIOR TO DISCHARGE. PT REPORTED PAIN MANAGED, TOLERATING PO, VOIDING AND PT CLEARED THERAPY. PT ESCORTED OUT IN W/C BY BARBARA STUDENT NURSE AT 1138.
--- NOTE | 2021-01-20 12:09 | NUR ---
DISCHARGE PT IS TOLERATING PO INTAKE. PT IS A&O X4. PT WAS CLEARED TO DISCHARGE PER PHYSICAL THERAPY. THE PTS PERSONAL CHIROPRACTIC CARE WAS PRESENT AT DISCHARGE. THE PT AND CAREGIVER BOTH VERBALIZE UNDERSTANDING OF DISCHARGE DIRECTION. PT REQUIRED MINIMAL ASSISTANCE WITH GETTING DRESSED AND TRANSFER TO . LIQUID FERTILIZER SERVICER ASSISTED PT WITH GATHERING PERSONAL BELONGINGS. PT WAS ESCORTED OUT VIA @ [id number].
== END 2021-01-20 12:04 | disposition home or self-care (01) ==
LOC: ORSCMMR 06:10 → ORD 07:30 → SURS 10:14 → ORSCMMR 10:14 → SURS 01-20 12:04
PROVIDERS: Orthopaedic Surgery
PROC: 8E0Y0CZ Robotic Assisted Procedure of Lower Extremity, Open Approach (ICD-10-PCS; principal; 2021-01-19 07:30)
PROC: 0SRD0JA Replacement of Left Knee Joint with Synthetic Substitute, Uncemented, Open Approach (ICD-10-PCS; principal; 2021-01-19 07:30)
DX: M17.12 Unilateral primary osteoarthritis, left knee (principal); Z86.718 Personal history of other venous thrombosis and embolism; Z79.01 Long term (current) use of anticoagulants; G47.33 Obstructive sleep apnea (adult) (pediatric); Z79.899 Other long term (current) drug therapy; E66.01 Morbid (severe) obesity due to excess calories; Z68.39 Body mass index [BMI] 39.0-39.9, adult; D68.51 Activated protein C resistance
CPT/HCPCS: 27447; S2900; 36415; 73560-LT; 80048; 85025; 97110; 97116; 97162; 97530; A9270; C1776; J0171; J0690; J0735; J1885; J2250; J2704; J2795; J3010; J7120

== ENCOUNTER → 2021-03-22 | Outpatient (CLI) | payer OTHER ==
[~2021-03-22] MED LIST changes: +TRAM50 PO
== END | disposition home or self-care (01) ==
LOC: LAB SHORT 10:52 → LAB 10:52
DX: D36.11 Benign neoplasm of peripheral nerves and autonomic nervous system of face, head, and neck (principal)
CPT/HCPCS: 88305

== ENCOUNTER 2021-08-06 12:42 | Day surgery (SDC) | payer OTHER ==
[~2021-08-06] VITALS: Ht 175.3 cm; Wt 112.3 kg
== END 2021-08-06 14:09 | disposition home or self-care (01) ==
LOC: ORSCSDS 12:42
PROVIDERS: Internal Medicine Gastroenterology
PROC: 0DJ08ZZ Inspection of Upper Intestinal Tract, Via Natural or Artificial Opening Endoscopic (ICD-10-PCS; principal; 2021-08-06 15:15)
PROC: 0D758ZZ Dilation of Esophagus, Via Natural or Artificial Opening Endoscopic (ICD-10-PCS; principal; 2021-08-06 15:15)
DX: R13.10 Dysphagia, unspecified (principal); K20.80 Other esophagitis without bleeding; K44.9 Diaphragmatic hernia without obstruction or gangrene; K22.0 Achalasia of cardia; Z98.84 Bariatric surgery status; J45.909 Unspecified asthma, uncomplicated; K21.9 Gastro-esophageal reflux disease without esophagitis; G47.33 Obstructive sleep apnea (adult) (pediatric); E66.9 Obesity, unspecified; Z68.36 Body mass index [BMI] 36.0-36.9, adult; Z79.899 Other long term (current) drug therapy
CPT/HCPCS: J0330; J0461; J2405; J2704; J7120

== ENCOUNTER 2022-04-09 19:32 | Emergency (ER) | payer OTHER ==
[~2022-04-09] VITALS: Ht 175.3 cm; Wt 112.0 kg
[2022-04-09 22:16] LABS: BASOPHILS ABSOLUTE AUTO 0.02 K/mm3 (0.00-0.23); BASOPHILS PERCENT AUTO 0 % (0-2); EOSINOPHILS ABSOLUTE AUTO 0.16 K/mm3 (0.00-0.68); EOSINOPHILS PERCENT AUTO 3 % (0-6); Hematocrit 30.1 % (33.0-51.0); Hemoglobin 9.5 g/dL (11.5-16.0); IMMATURE GRAN ABSOLUTE AUTO 0.06 K/mm3 (0.00-0.10); IMMATURE GRAN PERCENT AUTO 1 % (0-1); LYMPHOCYTES ABSOLUTE AUTO 1.39 K/mm3 (0.84-5.20); LYMPHOCYTES PERCENT AUTO 23 % (21-46); MONOCYTES ABSOLUTE AUTO 0.53 K/mm3 (0.16-1.47); MONOCYTES PERCENT AUTO 9 % (4-13); Mean Corpuscular HGB 31.5 pg (26.0-34.0); Mean Corpuscular HGB Conc 31.6 g/dL (31.5-36.5); Mean Corpuscular Volume 100 fL (80-100); Mean Platelet Volume 9.6 fL (9.1-12.4); NEUTROPHILS ABSOLUTE AUTO 3.78 K/mm3 (1.96-9.15); NEUTROPHILS PERCENT AUTO 64 % (41-73); Platelet Count 295 K/mm3 (150-400); RDW Coefficient Variation 15.4 % (11.7-14.2); RDW Standard Deviation 52.1 fL (35.1-46.3); Red Blood Cell Count 3.02 M/mm3 (3.80-5.20); White Blood Cell Count 5.94 K/mm3 (4.00-11.30)
[2022-04-09 22:32] LABS: Albumin, Blood 3.2 g/dL (3.4-5.0); Albumin/Globulin Ratio 0.8 (0.8-1.8); Bilirubin, Total 0.8 mg/dL (0.1-1.0); Bun/Creatinine Ratio 39.8 (12.0-20.0); Calcium, Blood 8.6 mg/dL (8.5-10.1); Creatinine, Blood 0.7 mg/dL (0.40-1.00); Globulin, Blood 3.8 g/dL (2.2-4.0); Potassium, Blood 3.8 mmol/L (3.5-5.5)
== END 2022-04-10 00:09 | disposition home or self-care (01) ==
LOC: ER 19:32
PROVIDERS: Student in an Organized Health Care Education/Training Program
DX: L76.22 Postprocedural hemorrhage of skin and subcutaneous tissue following other procedure (principal); D68.8 Other specified coagulation defects; D68.51 Activated protein C resistance; J45.909 Unspecified asthma, uncomplicated; Z86.711 Personal history of pulmonary embolism; Z86.718 Personal history of other venous thrombosis and embolism; Z79.01 Long term (current) use of anticoagulants; Z79.899 Other long term (current) drug therapy; Z88.5 Allergy status to narcotic agent; Z91.038 Other insect allergy status
CPT/HCPCS: 80053; 85025

== ENCOUNTER 2022-04-29 10:03 | Day surgery (SDC) | payer OTHER ==
[~2022-04-29] VITALS: Ht 172.7 cm; Wt 111.7 kg
--- NOTE | 2022-04-29 11:11 | NUR ---
04/29/22 Genet Santos 4 ATTEMPTS AT IV. FIRST ATTEMPT BY MA IN R HAND MISSED. SECOND ATTEMPT BY MA IN R FOREARM INFILTRATED. THIRD ATTEMPT BY MA IN L HAND UNABLE TO ADVANCE. FOURTH ATTEMPT BY MA IN L WRIST SUCCESSFUL.
== END 2022-04-29 13:48 | disposition home or self-care (01) ==
LOC: ORSCSDS 10:03
PROVIDERS: Internal Medicine Gastroenterology
PROC: 0DJ08ZZ Inspection of Upper Intestinal Tract, Via Natural or Artificial Opening Endoscopic (ICD-10-PCS; principal; 2022-04-29 11:30)
DX: K21.00 Gastro-esophageal reflux disease with esophagitis, without bleeding (principal); K44.9 Diaphragmatic hernia without obstruction or gangrene; K22.0 Achalasia of cardia; G47.33 Obstructive sleep apnea (adult) (pediatric); J45.909 Unspecified asthma, uncomplicated; Z79.01 Long term (current) use of anticoagulants; R62.50 Unspecified lack of expected normal physiological development in childhood; Z79.899 Other long term (current) drug therapy
CPT/HCPCS: A9270; J2704; J7120

== ENCOUNTER 2025-01-15 10:07 | Inpatient (IN) | payer OTHER ==
[~2025-01-15] VITALS: Ht 170.2 cm; Wt 90.3 kg
[~2025-01-15 10:07] MED LIST changes: +ALKA-SELTZER H300 MG PO; +ALLEGRA ALLERG180 MG PO; +CODACE30; +Crestor40 MG PO; -ELIQUIS2.5 MG PO; +ELIQUIS5 M2 PO; +FEMRING VAG; +LANS30EC PO; -PRAM.125 PO; +PRAMIPEXOLE DI0.5 M1 PO; +Phentermine HCl30 MG PO; -ROSU10TA PO; +ZINC PO; +ZYRTEC10 M2 PO
[2025-01-15 11:15] LABS: BASOPHILS ABSOLUTE AUTO 0.02 K/mm3 (0.00-0.23); BASOPHILS PERCENT AUTO 0 % (0-2); EOSINOPHILS ABSOLUTE AUTO 0.03 K/mm3 (0.00-0.68); EOSINOPHILS PERCENT AUTO 1 % (0-6); Hematocrit 47.9 % (33.0-51.0); Hemoglobin 15.5 g/dL (11.5-16.0); IMMATURE GRAN ABSOLUTE AUTO 0.01 K/mm3 (0.00-0.10); IMMATURE GRAN PERCENT AUTO 0 % (0-1); LYMPHOCYTES ABSOLUTE AUTO 1.22 K/mm3 (0.84-5.20); LYMPHOCYTES PERCENT AUTO 23 % (21-46); MONOCYTES ABSOLUTE AUTO 0.43 K/mm3 (0.16-1.47); MONOCYTES PERCENT AUTO 8 % (4-13); Mean Corpuscular HGB Conc 32.4 g/dL (31.5-36.5); Mean Corpuscular Volume 99 fL (80-100); Mean Platelet Volume 10.4 fL (9.1-12.4); NEUTROPHILS ABSOLUTE AUTO 3.54 K/mm3 (1.96-9.15); NEUTROPHILS PERCENT AUTO 67 % (41-73); Platelet Count 236 K/mm3 (150-400); RDW Coefficient Variation 13.4 % (11.7-14.2); RDW Standard Deviation 49.2 fL (35.1-46.3); Red Blood Cell Count 4.85 M/mm3 (3.80-5.20); White Blood Cell Count 5.25 K/mm3 (4.00-11.30)
[2025-01-15 11:37] LABS: Albumin, Blood 3.4 g/dL (3.4-5.0); Albumin/Globulin Ratio 0.9 (0.8-1.8); Bilirubin, Total 0.3 mg/dL (0.1-1.0); Bun/Creatinine Ratio 32.9 (12.0-20.0); Calcium, Blood 8.5 mg/dL (8.5-10.1); Creatinine, Blood 0.58 mg/dL (0.40-1.00); Globulin, Blood 3.9 g/dL (2.2-4.0); Potassium, Blood 4.1 mmol/L (3.5-5.5); Total Protein, Blood 7.3 g/dL (6.4-8.2)
--- NOTE | 2025-01-15 15:07 | NUR ---
Pt. is awake in bed and welcomes my visit. Visited Pt. after receiving a call from a mutual friend. Pt. is known to this telephone clerk from the community. Facilitated an update with Pt. Pts. caregiver is at bedside. Pt. displays evidence of being alert and aware. Prayed with the Pt. Pt. and fely both verbalize gratitude for the spiritual care visit.
[2025-01-15] MEDS ORDERED: Lidocaine 2% Jelly Uro-Jet TOP ONE (15:10)
[2025-01-15] MEDS ORDERED: Metoclopramide HCl 5MG / ML 2ML Vial IV PRN (17:45)
[2025-01-15] MEDS ORDERED: Albuterol 2.5 MG/3 ML VIAL INH PRN (17:45)
[2025-01-15] MEDS ORDERED: Ondansetron HCl 2 MG / ML 2ML Vial IV PRN (17:45)
[2025-01-15] MEDS ORDERED: Lactated Ringer's 1,000 ML IV ONE (18:00)
[2025-01-15] MEDS ORDERED: Bisacodyl 10 MG Supp PR ONE (18:00)
[2025-01-15] MEDS ORDERED: Lactated Ringer's 1,000 ML IV SCH (19:00)
[2025-01-15 19:38] VITALS: BP 107/57
[2025-01-15] MEDS ORDERED: Dose Adjust by Pharmacy XX STA (21:08)
[2025-01-15] MEDS ORDERED: Heparin Sodium,Porcine/0.5 NS 500 ML IV SCH (21:10)
[2025-01-15 21:19] LABS: International Normalized Ratio 1.01; Prothrombin Time Results 10.8 Sec (9.7-11.5)
--- NOTE | 2025-01-15 22:20 | NUR ---
HEPARIN: PER FARIBA PHARMACIST OK TO RUN HEPARIN INTO Y SISTE WITH LR IV.
--- NOTE | 2025-01-16 00:52 | NUR ---
2100- PT CAREGIVER CALLED TO GET UPDATED MED LIST. PT IS UNABLE TO RECALL HER MEDS. PT CREGIVER WAS UNABLE TO BE REACHED AND A MESAGE WAS LEFT.
[2025-01-16 05:03] VITALS: BP 110/62
[2025-01-16 05:21] LABS: BASOPHILS ABSOLUTE AUTO 0.02 K/mm3 (0.00-0.23); BASOPHILS PERCENT AUTO 1 % (0-2); EOSINOPHILS ABSOLUTE AUTO 0.07 K/mm3 (0.00-0.68); EOSINOPHILS PERCENT AUTO 2 % (0-6); Hematocrit 40.1 % (33.0-51.0); Hemoglobin 12.8 g/dL (11.5-16.0); IMMATURE GRAN ABSOLUTE AUTO 0.01 K/mm3 (0.00-0.10); IMMATURE GRAN PERCENT AUTO 0 % (0-1); LYMPHOCYTES ABSOLUTE AUTO 1.28 K/mm3 (0.84-5.20); LYMPHOCYTES PERCENT AUTO 34 % (21-46); MONOCYTES ABSOLUTE AUTO 0.29 K/mm3 (0.16-1.47); MONOCYTES PERCENT AUTO 8 % (4-13); Mean Corpuscular HGB 31.6 pg (26.0-34.0); Mean Corpuscular HGB Conc 31.9 g/dL (31.5-36.5); Mean Corpuscular Volume 99 fL (80-100); Mean Platelet Volume 10.3 fL (9.1-12.4); NEUTROPHILS ABSOLUTE AUTO 2.14 K/mm3 (1.96-9.15); NEUTROPHILS PERCENT AUTO 56 % (41-73); Platelet Count 209 K/mm3 (150-400); RDW Coefficient Variation 13.6 % (11.7-14.2); RDW Standard Deviation 50.2 fL (35.1-46.3); Red Blood Cell Count 4.05 M/mm3 (3.80-5.20); White Blood Cell Count 3.81 K/mm3 (4.00-11.30)
[2025-01-16 05:47] LABS: Albumin, Blood 2.7 g/dL (3.4-5.0); Albumin/Globulin Ratio 0.9 (0.8-1.8); Bilirubin, Total 0.3 mg/dL (0.1-1.0); Creatinine, Blood 0.6 mg/dL (0.40-1.00); Magnesium, Blood 2.1 mg/dL (1.6-2.4); Potassium, Blood 3.8 mmol/L (3.5-5.5); Total Protein, Blood 5.7 g/dL (6.4-8.2)
[2025-01-16] MEDS ORDERED: Dose Adjust by Pharmacy XX STA ×2 (06:02→13:00)
--- NOTE | 2025-01-16 06:54 | NUR ---
NOC SUMMARY- PT ARRIVED TO ROOM IN NO DISTRESS. PT NGT DRAING GREN/ BROWN FLUID. PT PASSING GAS AND HAD A LARGE BM. PT DENIES PAIN OR N/V. PT REMAINS NPO. PT HAS BEEN RESTING QUIETLY. PT WEARS BOOT ON FOOT NEEDED. CALL LIGHT IN REACH.
[2025-01-16 07:10] VITALS: BP 114/62
[2025-01-16] MEDS ORDERED: Pantoprazole Sodium 40 MG Injection IV SCH (09:00)
--- NOTE | 2025-01-16 13:48 | NUR ---
Pt. is awake and welcomes my visit. Pt. is pleasant and is known to this experimental machining lab manager from the community. Facilitated an update. Pt. is a little unsettled about whether she will need surgery. Moralize the Pt. experience, and give a measure of pastoral care. Prayed with the Pt. Pt. requested a bible. This experimental machining lab manager brought her one. Pt. displayed evidence of being encourgaed and supported.
[2025-01-16 14:51] VITALS: BP 117/55
--- NOTE | 2025-01-16 16:49 | NUR ---
SHIFT SUMMARY NO ACUTE EVENTS THIS SHIFT. PATIENT HAS NG TUBE TO LI SX. OUTPUT OF 300ML BROWN IN COLOR. NG TUBE ADVANCED PER DR. WATSON. PATIENT TOLERATED WELL. DENIES NAUSEA. AMBULATES WELL WITH SBA, LLE HAS A BOOT WITH PINS IN HER TOE FROM PREVIOUS PODIATRY SURGERY. AWAITING [facility] TRANSFER. VSS, AND CALLS APROPRIATELY.
[2025-01-16 22:17] VITALS: BP 106/56
[2025-01-17 02:09] VITALS: BP 111/57
[2025-01-17] MEDS ORDERED: Dose Adjust by Pharmacy XX STA ×2 (03:11→11:17)
--- NOTE | 2025-01-17 06:30 | NUR ---
Shift Summary Pt had 550 mL of dark brown NG tube output when I started the shift. 8 hours later she had no additional output. I called the hospitalist who ordered an X-Ray and the charge nurse Woody helped me assess the NG tube. Per the XRAY the NOC thought the NG tube looked coiled and ordered to withdrawal the tube 8-10cm. We withdrew 9cm and the tube is now producing some dark orange output. Pt tolerated procedure well. Pt is AOx4, 1 assist to BSC. No c/o of pain or nausea this shift.
[2025-01-17 06:33] LABS: Hematocrit 39.3 % (33.0-51.0); Hemoglobin 12.7 g/dL (11.5-16.0); Mean Platelet Volume 10.9 fL (9.1-12.4); Platelet Count 183 K/mm3 (150-400)
--- NOTE | 2025-01-17 07:01 | NUR ---
SPOKE WITH DR BURGESS POST IMAGING TO CONFIRM NG PLAVEMENT AND HE INSTRUCTED ME TO BACK OUT TUBE 8-10 CM AND BLANCHE IT IT WAS WORKING.I STARED AT 9 CM WITH NO IMPROVEMENT,THEN BACKED OUT ADDITIONAL 1 CM WITH IMPROVEMNT IN RETURN.RESECURED.
[2025-01-17 08:23] VITALS: BP 106/59
--- NOTE | 2025-01-17 08:32 | NUR ---
Pt. is awake and is playing cards. Pt. is pleasant but also seems unsettled about the projected length of time for her diagnosis. Normalized the Pt. experience and Pastoral support is given. Pt. displayed evidence of understanding and agreement. Visit is shortened by a rapid response. Pt. Prayed with Pt. Pt. verbalized gratitude for the spiritual care visit.
--- NOTE | 2025-01-17 11:43 | NUR ---
IV HEPARIN STOPPED AT 1117 FOR 1 HR PER PHARMACY. SEE NEW ORDER
--- NOTE | 2025-01-17 12:25 | NUR ---
HEPARIN DOSE ADJUSTED TO 22UNIT/KG/H AND RATE OF 32.6ML/HR. VERIFIED WITH YARIEL El RN.
[2025-01-17 15:18] VITALS: BP 108/68
--- NOTE | 2025-01-17 15:28 | NUR ---
PT TO IMAGING AT THIS TIME, NGT HAS BEEN CLAMPED SINCE 3640
--- NOTE | 2025-01-17 15:51 | NUR ---
SMALL BOWEL FOLLOW THROUGH COMPLETE. PT HAD LARGE LIQ BM AT THIS TIME. NGT IS CLAMPED, PT DENIES NAUSEA.
--- NOTE | 2025-01-17 17:32 | NUR ---
SUMMARY: NO ACUTE CHANGE TODAY. VSS, A/O. NGT CONTINUES TO BE CLAMPED, PT HAS HAD NO N/V, NO PAIN. LIQ BM'S X2. PHARMACY MANAGING HEPARIN DRIP, INFUSING THROUGH L FOREARM IV. PT USES CALL LIGHT AND MAKES NEEDS KNOWN
[2025-01-17 19:56] VITALS: BP 109/54
--- NOTE | 2025-01-17 22:15 | NUR ---
OFFGOING DAY RN CALLED DR COLON ABOUT ADVVANCING PT DIET TO ICE CHIPS, BUT GAVE ORDERS THAT PT TO REMAIN NPO AND THAT NG TUBE INTERMIITENT SUCTION TO RESUME.
[2025-01-18] MEDS ORDERED: Diazepam 5 MG / ML 2ML SYR IV ONE (00:15)
--- NOTE | 2025-01-18 02:53 | NUR ---
[facility] WENDI KANG CALLED FOR UPDATE ON PT CURRENT CLINICAL STATUS @ 0250. UPDATE NOTED NPO STATUS AND NG TUBE STILL HOOKED UP TO SUCTION AND VSS, AND HEPARIN DRIP STILL INFUSING. TRANSFER WENDI GARRIDO PT IS STABLE FOR TRANSFER TO [facility], BUT THERE ARE CURRENTLY NO OPEN BEDS AT THIS TIME.
[2025-01-18 03:29] LABS: Hematocrit 41.3 % (33.0-51.0); Hemoglobin 13.3 g/dL (11.5-16.0); Mean Platelet Volume 10.2 fL (9.1-12.4); Platelet Count 215 K/mm3 (150-400)
[2025-01-18] MEDS ORDERED: Clarify Drug Order XX ONE (04:05)
--- NOTE | 2025-01-18 05:10 | NUR ---
SHIFT SUMMARY NOC PT A/O X 4. PLEASANT AND COOPERATIVE WITH CARE. VSS. PT STILL NPO AND DR COLON NOTIFIED OF PT REQUEST TO HAVE ICE CHIPS BY DAY RN, BUT STILL WANTS NPO STATUS AND TO REINITIATE NG TUBE ON LOW INTERMITTENT SUCTION FOR TIME BEING. PT HAS HEPARIN AND LR INFUSING PER ORDERS. BOOT ON L FOOT FROM SURGERY IN NOVEMBER. PT HAD C/O OF INSOMNIA AND GIVEN ONE TIME DOSE OF DIEZAPAM IV. PT STILL HAVING BROWN LIQUID STOOLS AND NG TUBE WITH DARK BILE OUTPUT. [facility] CALLED FOR CLINICAL UPDATE AND REPORTED THAT THERE ARE STILL NO AVAILALE BEDS. PT CURRENTLY RESTING WITH BED IN LOWEST POSITION, AND CALL LIGHT WITHIN REACH.
[2025-01-18 05:31] VITALS: BP 103/48
[2025-01-18 05:34] VITALS: BP 103/50
[2025-01-18 07:21] VITALS: BP 111/57
--- NOTE | 2025-01-18 09:19 | NUR ---
MORNING NOTE THIS RN ASSUMED CARE AT APPROX 0715. PATIENT ALERT AND ORIENTED X4. COMMUNICATES NEEDS EFFECTIVELY. SBP 100s-110s. MAP >65. DENIES CHEST PAIN, PRESSURE. ASYMPTOMATIC WITH POSITION CHANGES. HEPARIN GTT INFUSING PER EMAR. ON ROOM AIR, SATs >90%. DENIES SOB. NG TUBE IN PLACE - PATENT, TO LIS. GREEN OUTPUT IN CANISTER. DENIES N/V. ABD SOFT, NONTENDER. HYPOACTIVE BOWEL TONES. REPORTS EPISODES OF LOOSE STOOL - X1 EPISODE THIS MORNING. NPO - IVF INFUSING PER EMAR. AMBULATING WITH SBA FOR LINE, DEVICE MANAGEMENT TO BSC. L FOOT IN BOOT RELATED TO HAMMERTOE PROCEDURE IN NOVEMBER - DENIES PAIN. REPOSITIONS HERSELF INDEPENDENTLY IN BED. CALL LIGHT IN REACH. AWAITING BED AT [facility].
--- NOTE | 2025-01-18 09:45 | NUR ---
UPDATE MD WATSON ROUNDING ON UNIT. PATIENT REQUESTING TO DC HOME TODAY IF POSSIBLE. RECEIVED VERBAL ORDER FOR ABD XRAY TODAY - ORDER IN PLACE. AWAITING GENERAL SURGERY TO ROUND.
--- NOTE | 2025-01-18 09:58 | NUR ---
UPDATE MD FRANKLIN ROUNDING ON UNIT - RECEIVED ORDER TO REMOVE NG TUBE AND TO ADVANCE DIET TO CLEAR LIQUID. IF PATIENT IS TOLERATING DIET, THEN SHE IS ABLE TO DC HOME TODAY.
[2025-01-18] MEDS ORDERED: Dose Adjust by Pharmacy XX STA (10:05)
--- NOTE | 2025-01-18 11:03 | NUR ---
MD WATSON CONTACTED WITH UPDATE. PATIENT TOLERATING CLEAR LIQUID DIET. RECEIVED ORDER TO DC HEPARIN GTT AND TO START HOME DOSE OF ELIQUIS
[2025-01-18] MEDS ORDERED: Apixaban 5 MG Tab PO SCH (11:05)
[2025-01-18] MEDS ORDERED: CLIMARA1 EACH VAG (13:34)
--- NOTE | 2025-01-18 13:59 | NUR ---
DISCHARGE NOTE NO ACUTE CHANGES SINCE PREVIOUS NOTES. PATIENT REMAINS ALERT AND ORIENTED X4. COMMUNICATES NEEDS EFFECTIVELY. VSS. NG TUBE REMOVED THIS MORNING PER MD ORDER. PATIENT TOLERATING CLEAR LIQUID DIET. DENIES N/V. X2 EPISODES OF LOOSE STOOL. REPORTS FLATULENCE. REPEAT ABD XRAY OBTAINED. CLEARED BY MD FRANKLIN FOR DC HOME. HEPARIN GTT STOPPED AND HOME ELIQUIS RESTARTED. MD WATSON CONTACTED. DC HOME ORDERED. X2 IVs REMOVED. WRITTEN AND VERBAL EDUCATION PROVIDED - PATIENT STATES UNDERSTANDING. PERSONAL BELONGINGS WITH PATIENT. PATIENT TRANSFERRED TO PERSONAL VEHICLE VIA .
== END 2025-01-18 14:00 | disposition home or self-care (01) | DRG 389 ==
LOC: ER 10:07 → ERHOLD 17:39 → SURS 17:39
PROVIDERS: Nurse Practitioner Acute Care; Physician Assistant; ADMIT Internal Medicine
PROC: 0D9670Z Drainage of Stomach with Drainage Device, Via Natural or Artificial Opening (ICD-10-PCS; principal; 2025-01-15)
DX: K56.609 Unspecified intestinal obstruction, unspecified as to partial versus complete obstruction (principal); D68.51 Activated protein C resistance; Z96.662 Presence of left artificial ankle joint; K58.9 Irritable bowel syndrome, unspecified; F32.9 Major depressive disorder, single episode, unspecified; G25.81 Restless legs syndrome; G47.33 Obstructive sleep apnea (adult) (pediatric); K59.00 Constipation, unspecified; J45.20 Mild intermittent asthma, uncomplicated; E78.5 Hyperlipidemia, unspecified; K20.90 Esophagitis, unspecified without bleeding; Z79.01 Long term (current) use of anticoagulants; Z79.899 Other long term (current) drug therapy; Z79.51 Long term (current) use of inhaled steroids; Z90.49 Acquired absence of other specified parts of digestive tract; Z88.5 Allergy status to narcotic agent; Z91.030 Bee allergy status; Z87.19 Personal history of other diseases of the digestive system; Z86.711 Personal history of pulmonary embolism; Z86.73 Personal history of transient ischemic attack (TIA), and cerebral infarction without residual deficits; Z90.710 Acquired absence of both cervix and uterus; Z98.890 Other specified postprocedural states; Z90.89 Acquired absence of other organs
CPT/HCPCS: 36415; 71045; 74018; 74177; 74250; 80053; 83690; 83735; 85014; 85018; 85025; 85049; 85610; 85730; 94760; 99285-25; A9270; J1644; J2470; J3360; J7120; Q9967

== ENCOUNTER → 2025-09-11 | Outpatient (CLI) | payer OTHER ==
[~2025-09-11] MED LIST changes: +CHOLESTYRAMI239.4 G1 PO; +CLIMARA1 EACH VAG
[2025-09-11 14:22] LABS: BASOPHILS ABSOLUTE AUTO 0.01 K/mm3 (0.00-0.23); BASOPHILS PERCENT AUTO 0 % (0-2); EOSINOPHILS ABSOLUTE AUTO 0.05 K/mm3 (0.00-0.68); EOSINOPHILS PERCENT AUTO 1 % (0-6); Hematocrit 42.1 % (33.0-51.0); Hemoglobin 13.6 g/dL (11.5-16.0); IMMATURE GRAN ABSOLUTE AUTO 0.01 K/mm3 (0.00-0.10); IMMATURE GRAN PERCENT AUTO 0 % (0-1); LYMPHOCYTES ABSOLUTE AUTO 1.22 K/mm3 (0.84-5.20); LYMPHOCYTES PERCENT AUTO 30 % (21-46); MONOCYTES ABSOLUTE AUTO 0.34 K/mm3 (0.16-1.47); MONOCYTES PERCENT AUTO 9 % (4-13); Mean Corpuscular HGB Conc 32.3 g/dL (31.5-36.5); Mean Corpuscular Volume 98 fL (80-100); NEUTROPHILS ABSOLUTE AUTO 2.39 K/mm3 (1.96-9.15); NEUTROPHILS PERCENT AUTO 60 % (41-73); NRBC ABSOLUTE 0.00 K/mm3 (0.00-0.02); NRBC Auto 0.0 /100 WBC (0.0-0.2); Platelet Count 232 K/mm3 (150-400); RDW Coefficient Variation 13.2 % (11.7-14.2); RDW Standard Deviation 47.8 fL (35.1-46.3)
[2025-09-11 14:37] LABS: Alanine Aminotransfer (ALT/SGP 61.0 U/L (12-78); Albumin, Blood 3.3 g/dL (3.4-5.0); Albumin/Globulin Ratio 0.9 (0.8-1.8); Anion Gap 11.0 mmol/L (3-11); Aspartate Aminotrans (AST/SGOT 33.0 U/L (12-37); Bilirubin, Total 0.4 mg/dL (0.1-1.0); Blood Urea Nitrogen 23.0 mg/dL (8-24); CO2, Blood 28.0 mmol/L (21-32); Calcium, Blood 8.6 mg/dL (8.5-10.1); Chloride, Blood 107.0 mmol/L (98-108); Creatinine, Blood 0.73 mg/dL (0.40-1.00); Globulin, Blood 3.5 g/dL (2.2-4.0); Glucose, Blood 117.0 mg/dL (70-99); Potassium, Blood 4.2 mmol/L (3.5-5.5); Sodium, Blood 142.0 mmol/L (136-145); Total Protein, Blood 6.8 g/dL (6.4-8.2)
== END ==
LOC: LAB 14:19 → LAB SHORT 14:19
DX: R10.9 Unspecified abdominal pain (principal)
CPT/HCPCS: 80053; 83690; 85025